=== PATIENT | female | born 1965 | race Hispanic/Latino ===

== ENCOUNTER 2023-01-20 22:25 | Emergency (ER) | payer MEDICARE ==
[2023-01-20] MEDS ORDERED: Acetaminophen 500 MG TAB ONE (22:58)
== END 2023-01-21 00:08 | disposition home or self-care (01) ==
LOC: CSHERS 22:25
DX: S01.01XA Laceration without foreign body of scalp, initial encounter (principal); E11.9 Type 2 diabetes mellitus without complications; I10 Essential (primary) hypertension; E78.5 Hyperlipidemia, unspecified; W19.XXXA Unspecified fall, initial encounter
CPT/HCPCS: 70450; 93005

== ENCOUNTER 2023-02-06 21:45 | Emergency (ER) | payer MEDICARE, OTHER | END 2023-02-06 22:36 | disposition home or self-care (01) | LOC: CSHERS 21:45 | DX: S01.01XD Laceration without foreign body of scalp, subsequent encounter (principal); I10 Essential (primary) hypertension; E11.9 Type 2 diabetes mellitus without complications ==

== ENCOUNTER 2024-01-02 12:08 | Emergency (ER) | payer MEDICARE, OTHER ==
[2024-01-02] MEDS ORDERED: Ibuprofen 200 MG TAB ONE (13:12)
== END 2024-01-02 13:41 | disposition home or self-care (01) ==
LOC: CSHERS 12:08
DX: M79.644 Pain in right finger(s) (principal); I10 Essential (primary) hypertension; E11.9 Type 2 diabetes mellitus without complications; W01.198A Fall on same level from slipping, tripping and stumbling with subsequent striking against other object, initial encounter
CPT/HCPCS: 71045

== ENCOUNTER 2024-11-29 19:45 | Emergency (ER) | payer OTHER ==
[2024-11-29 21:05] LABS: #Basophils Less than 0.03 10x3/uL (0.0-0.2); #Eosinophils 0.16 10x3/uL (0.0-0.5); #Monocytes 0.47 10x3/uL (0.0-1.1); #Neutrophils 3.03 10x3/uL (1.5-8.4); %Basophils 0.2 % (0.0-2.0); %Eosinophils 2.7 % (0.0-6.0); %Lymphocytes 39.0 % (18.0-47.0); %Monocytes 7.8 % (0.0-10.0); %Neutrophils 50.1 % (40.0-75.0); Hematocrit 37.9 % (34.9-44.5); Hemoglobin 12.9 g/dL (12.0-15.5); Mean Corpuscular Hemoglobin 29.3 pg (27.0-33.0); Mean Corpuscular Volume 86.1 fL (81.6-98.3); Platelet Count 218 10x3/uL (150-450); Red Blood Cell (RBC) Count 4.40 10x6/uL (3.90-5.03); White Blood Cell (WBC) Count 6.03 10x3/uL (3.5-10.5)
[2024-11-29 21:20] LABS: ALT (SGPT) 27 U/L (Less than 34); AST (SGOT) 24 U/L (11-34); Albumin 4.3 g/dL (3.1-4.5); Alkaline Phosphatase 104 U/L (40-110); Anion Gap 15 mmol/L (10-20); BUN (Urea Nitrogen) 13 mg/dL (9.8-20.1); Bilirubin, Total 0.1 mg/dL (0.3-1.2); Calc. Creatinine Clearance 0 mL/min (70-130); Calcium 8.9 mg/dL (7.8-10.44); Carbon Dioxide 25 mmol/L (22-29); Chloride 106 mmol/L (98-107); Globulin 2.7 g/dL (2.4-3.5); Glucose 147 mg/dL (70-105); Potassium 3.7 mmol/L (3.5-5.1); Sodium 142 mmol/L (136-145)
[2024-11-29 21:24] LABS: Troponin I Less than 0.010 ng/mL (< 0.028)
== END 2024-11-29 22:38 | disposition home or self-care (01) ==
LOC: CSHERS 19:45
DX: R07.9 Chest pain, unspecified (principal); I10 Essential (primary) hypertension; E11.9 Type 2 diabetes mellitus without complications
CPT/HCPCS: 71045; 80053; 84484; 85025; 93005